=== PATIENT | male | born 1965 | race Caucasian/White ===

== ENCOUNTER 2018-07-03 17:20 | Inpatient (IN) | payer OTHER ==
[~2018-07-03] VITALS: Ht 172.7 cm; Wt 102.1 kg
[2018-07-10] MEDS ORDERED: AMOX-CLAV 875-1 EACH PO (13:44)
[2018-07-10] MEDS ORDERED: ZANTAC150 MG PO (13:45)
[2018-07-10] MEDS ORDERED: INTESTINEX680 M1 PO (13:45)
== END 2018-07-10 14:05 | disposition home or self-care (01) | DRG 572 ==
LOC: ER 17:20 → MEDJ 07-04 11:54 → SURH 07-04 11:54
PROVIDERS: ADMIT Internal Medicine
PROC: 0JBN0ZZ Excision of Right Lower Leg Subcutaneous Tissue and Fascia, Open Approach (ICD-10-PCS; principal; 2018-07-08)
DX: L03.115 Cellulitis of right lower limb (principal)